=== PATIENT | male | born 1995 | race Caucasian/White ===

== ENCOUNTER 2021-05-25 13:40 | Emergency (ER) | payer SELFPAY ==
[2021-05-25 13:47] VITALS: BP 139/84; PULSE 119; RESP 20; TEMP 37.1; O2SAT 97
--- NOTE | 2021-05-25 18:22 | ED_ITS ---
HPI - General Adult General Chief complaint: Ear Stated complaint: Something stuck in ear, infection, jaw pain Time Seen by Provider: 05/25/21 18:16 Source: patient Mode of arrival: Ambulatory History of Present Illness HPI narrative: 26-year-old male here for evaluation of a piece of paper stuck in his right ear. He states that he put a piece of paper in his right ear approximately 4 months ago. He would not go into specifics about why he did this. He states that it has not caused him any issues until couple days ago when he started having pain in his right ear and pain in his right jaw. No problems breathing. Related Data Previous Rx's Medication Instructions Recorded ciprofloxacin 0.3 %-dexamethasone 10 drp EAR-RIGHT BID 7 Days #7.5 ml 05/25/21 0.1 % ear drops,suspension (Ciprodex) Allergies Allergy/AdvReac Type Severity Reaction Status Date / Time No Known Drug Allergies Allergy Verified 05/25/21 13:50 Review of Systems Constitutional Constitutional: Denies fever(s) ENT Ears, Nose, Mouth, and Throat: Reports system reviewed and no additional complaints, except as documented and Reports as per HPI Respiratory Respiratory: Reports as per HPI and Reports system reviewed and no additional complaints, except as documented Integumentary/Breasts Skin/Breast: Reports system reviewed and no additional complaints, except as documented Hematologic/Lymphatic On Anticoagulants: No Patient History Medical History Healthy adult Social History Smoking Status: Current every day smoker Smoking Status: Current every day smoker alcohol intake frequency: 3 or more drinks per day Alcohol type: wine Exam Initial Vital Signs Initial Vital Signs: Vital Signs Temperature 98.7 F 05/25/21 13:47 Pulse Rate 119 H 05/25/21 13:47 Respiratory Rate 20 05/25/21 13:47 Blood Pressure 139/84 05/25/21 13:47 Pulse Oximetry 97 05/25/21 13:47 Const General: cooperative and healthy appearing HENNJ Ears: TM normal on the right and EAC abnormal erythema on the right, edema on the right and foreign body on the right Resp Effort & Inspection: normal respiratory effort Cardio Rate: regular rate Skin General: no rashes or lesions noted Neuro General: patient alert, patient awake and moves all extremities Extrem General: normal to inspection and capillary refill normal Procedures Foreign Body EAR Location: ear canal (R) Foreign Body Suspected: other (Paper) TM intact pre-procedure: yes Foreign Body Removed: yes Foreign Body Removal Technique: instrumentation Tympanic Membrane Intact Post Procedure: Yes Patient Tolerated Procedure: Well and No complications Course Orders Ordered: Discontinued Medications Ibuprofen (Ibuprofen 400 Mg Tablet) 800 mg PO NOW ONE Stop: 05/25/21 18:24 Last Admin: 05/25/21 18:29 Dose: 800 mg Documented by: ESTUARDO Vital Signs Vital signs: Vital Signs - 8 hr 05/25/21 13:47 Temperature 98.7 F Pulse Rate 119 H Respiratory Rate 20 Blood Pressure 139/84 Pulse Oximetry 97 Medical Decision Making [facility] Narrative Medical decision making narrative: Patient states that the paper has been in his ear for the past 4 months. It was easily removed. The tympanic membrane is easily visualized and does not have any erythema no signs of perforation. The external auditory canal appears to be very irritated. Given his symptoms in the foreign body I do suspect an otitis externa. Will place him on ear drops. He was given return precautions and follow-up instructions. He expressed understanding and agreement. Discharge Plan Departure Patient Disposition: Home Clinical Impression: Ear foreign body, Otitis externa Instructions: DI for Otitis Externa Activity Restrictions/Additional Instructions: The piece of paper was removed and the ear drum does not look like it is infected. You do have an infection of the ear canal and we should put you on antibiotic drops for this. You can take Tylenol and ibuprofen for discomfort. Return to the emergency department for any new or worsening symptoms. Prescriptions: New ciprofloxacin-dexamethasone [Ciprodex] 0.3-0.1 % drops,suspension 10 drp EAR-RIGHT BID 7 Days Qty: 7.5 0RF
[2021-05-25] MEDS: IBUPROFEN 400 MG TABLET 800 MG PO (18:29)
== END 2021-05-25 18:45 | disposition home or self-care (01) ==
PROVIDERS: Emergency Provider Emergency Medicine
DX: T16.1XXA Foreign body in right ear, initial encounter (principal); H60.91 Unspecified otitis externa, right ear; F17.200 Nicotine dependence, unspecified, uncomplicated; X58.XXXA Exposure to other specified factors, initial encounter
CPT/HCPCS: 69200; 99282; 99283